=== PATIENT | female | born 2000 ===

== ENCOUNTER 2024-09-30 10:30 | Inpatient (IN) | payer OTHER ==
[~2024-09-30] VITALS: Ht 162.6 cm; Wt 100.7 kg
[2024-10-12 15:14] VITALS: BP 134/82
[2024-10-12] MEDS ORDERED: PRENATABS RX T1 EACH PO (15:45)
[2024-10-12] MEDS ORDERED: RINGERS SOLUTION,LACTATED 1,000 ML IV SCH (16:00)
[2024-10-12] MEDS ORDERED: MISOPROSTOL 25 MCG TABLET VAG NR (16:00)
[2024-10-12] MEDS ORDERED: MORPHINE SULFATE 4 MG/ML CARTRIDGE IV PRN (16:00)
[2024-10-12 16:47] LABS: URINE APPEARANCE Cloudy; URINE BILIRRUBIN Negative (NEGATIVE); URINE BLOOD Negative; URINE COLOR Yellow; URINE KETONE Negative (NEGATIVE); URINE LEUKOCYTE Negative; URINE NITRATE Negative; URINE PROTEIN Negative (NEGATIVE)
[2024-10-12 16:48] LABS: URINE BACTERIA 144.3 uL (0.0-1933); URINE EPITHELIAL CELLS 12.3 uL (0.0-38.8); URINE RBC 4.5 uL (0.0-20.8); URINE WBC 4.4 uL (0.0-23.2)
[2024-10-12 16:48] LABS: HEMATOCRIT 38.1 % (36.0-45.00); HEMOGLOBIN 12.7 g/dL (12.0-15.00); MEAN CELL VOLUME 87.5 fL (80.00-100.00); MEAN CORPUSCULAR HEMOGLOBIN 29.2 pg (27.00-32.0); MEAN CORPUSCULAR HGB CONC 33.4 g/dl (32.0-36.0); PLATELET COUNT 201 K/uL (150-450); RED BLOOD COUNT 4.36 M/uL (4.00-6.00); RED CELL DISTRIBUTION WIDTH 14.1 % (11.5-14.5)
[2024-10-12 16:52] LABS: URINE CAST 0.14 uL (0.0-1.40); URINE GLUCOSE 100 MG/DL (NEGATIVE)
[2024-10-12 17:07] LABS: INR < 0.93; PARTIAL THROMBOPLASTIN TIME 28.7 SECONDS (22.0-34.0)
[2024-10-12 17:11] LABS: BILIRUBIN TOTAL 0.27 mg/dL (0.3-1.2); CALCIUM 9.3 mg/dL (8.5-10.1); CREATININE SERUM 0.76 mg/dL (0.55-1.02); GFR 92.72; GLOBULINA 3.6 G/DL (2.4-3.5); POTASSIUM 4.29 mEq/L (3.5-5.1); TOTAL PROTEIN 6.6 gm/dL (6.4-8.2)
[2024-10-12] MEDS ORDERED: MISOPROSTOL 25 MCG TABLET VAG ONE (18:15)
[2024-10-12 20:08] VITALS: BP 119/68; BP 140/82
[2024-10-12 23:38] VITALS: BP 126/60
[2024-10-13] VITALS (12 sets, daily range): BP systolic 124–145; BP diastolic 50–79
[2024-10-13] MEDS ORDERED: OXYTOCIN 500 ML IV ONE (07:00)
[2024-10-13] MEDS ORDERED: OXYTOCIN 20 UNITS/500ML RL PIGGYBAG IV ONE (07:10)
[2024-10-13] MEDS ORDERED: ERYTHROMYCIN BASE OPHT 1GM EACH TUBE OP ONE ×2 (16:52→18:30)
[2024-10-13] MEDS ORDERED: OXYTOCIN 20 UNITS/1000ML RL PIGGYBAG IV ONE (16:52)
[2024-10-13] MEDS ORDERED: CHLORHEXIDINE GLUCONATE 120 ML BOTTLE TOP ONE (16:52)
[2024-10-13] MEDS ORDERED: LIDOCAINE HCL 1% 10ML VIAL ONE (16:53)
[2024-10-13] MEDS ORDERED: CHLORHEXIDINE GLUCONATE 120 ML BOTTLE TOP SCH (18:00)
[2024-10-13] MEDS ORDERED: IBUprofen 400 MG TABLET PO PRN (18:00)
[2024-10-13] MEDS ORDERED: OXYTOCIN 1,000 ML IV SCH (18:00)
[2024-10-14 02:38] VITALS: BP 134/82
[2024-10-14 07:06] LABS: HEMATOCRIT 33.1 % (36.0-45.00); HEMOGLOBIN 11.2 g/dL (12.0-15.00); MEAN CELL VOLUME 87.5 fL (80.00-100.00); MEAN CORPUSCULAR HEMOGLOBIN 29.6 pg (27.00-32.0); MEAN CORPUSCULAR HGB CONC 33.9 g/dl (32.0-36.0); PLATELET COUNT 212 K/uL (150-450); RED BLOOD COUNT 3.78 M/uL (4.00-6.00); RED CELL DISTRIBUTION WIDTH 14.5 % (11.5-14.5)
[2024-10-14 08:00] VITALS: BP 106/72
[2024-10-14 16:08] VITALS: BP 116/75
[2024-10-15 01:02] VITALS: BP 120/77
[2024-10-15 08:52] VITALS: BP 135/66
[2024-10-15 16:28] VITALS: BP 139/76
== END 2024-10-15 17:52 | disposition home or self-care (01) | DRG 807 ==
LOC: OB/GYN 10-11 10:30 → LDR 10-12 14:46 → OB/GYN 10-14 00:04
PROVIDERS: Obstetrics & Gynecology; ADMIT Obstetrics & Gynecology Maternal & Fetal Medicine; ATTEND Obstetrics & Gynecology Maternal & Fetal Medicine
PROC: 3E0P7VZ Introduction of Hormone into Female Reproductive, Via Natural or Artificial Opening (ICD-10-PCS; 2024-10-12)
PROC: 4A1HXCZ Monitoring of Products of Conception, Cardiac Rate, External Approach (ICD-10-PCS; 2024-10-12)
PROC: 10E0XZZ Delivery of Products of Conception, External Approach (ICD-10-PCS; principal; 2024-10-13)
PROC: 0KQM0ZZ Repair Perineum Muscle, Open Approach (ICD-10-PCS; 2024-10-13)
PROC: 3E033VJ Introduction of Other Hormone into Peripheral Vein, Percutaneous Approach (ICD-10-PCS; 2024-10-13)
DX: O70.1 Second degree perineal laceration during delivery (principal); Z37.0 Single live birth; Z3A.40 40 weeks gestation of pregnancy; Z20.822 Contact with and (suspected) exposure to COVID-19

== ENCOUNTER 2024-10-04 09:45 | Outpatient (CLI) | payer OTHER | END 2024-10-04 10:25 | disposition home or self-care (01) | LOC: NST 09:45 | PROVIDERS: ATTEND Obstetrics & Gynecology Gynecology | DX: Z34.83 Encounter for supervision of other normal pregnancy, third trimester (principal) ==

== ENCOUNTER 2024-10-07 08:18 | Outpatient (CLI) | payer OTHER | END 2024-10-07 09:04 | disposition home or self-care (01) | LOC: NST 08:18 | PROVIDERS: ATTEND Obstetrics & Gynecology Gynecology | DX: Z34.83 Encounter for supervision of other normal pregnancy, third trimester (principal) ==